=== PATIENT | female | born 1990 | race Hispanic/Latino ===

== ENCOUNTER 2024-01-17 10:31 | Observation (INO) | payer MEDICAID, OTHER ==
[2024-01-17 11:06] VITALS: BMI 37.5
[2024-01-17] MEDS: Acetaminophen 500 MG TAB PO SCH (12:25)
[2024-01-17 12:35] LABS: #Basophils 0.02 10x3/uL (0.0-0.2); #Eosinophils 0.05 10x3/uL (0.0-0.5); #Monocytes 0.71 10x3/uL (0.0-1.1); #Neutrophils 8.19 10x3/uL (1.5-8.4); %Basophils 0.2 % (0.0-2.0); %Eosinophils 0.4 % (0.0-6.0); %Lymphocytes 18.7 % (18.0-47.0); %Monocytes 6.4 % (0.0-10.0); %Neutrophils 73.7 % (40.0-75.0); Hematocrit 35.8 % (34.9-44.5); Mean Corpuscular HGB CONC 30.7 g/dL (32.0-36.0); Mean Corpuscular Volume 68.2 fL (81.6-98.3); Mean Platelet Volume 10.5 fL (7.4-10.4); Platelet Count 228 10x3/uL (150-450); RBC Distribution Width 20.8 % (11.5-14.5); Red Blood Cell (RBC) Count 5.25 10x6/uL (3.90-5.03); White Blood Cell (WBC) Count 11.1 10x3/uL (3.5-10.5)
[2024-01-17 12:50] LABS: INR-International Normal Ratio 0.9; PTT 26.1 sec (22.0-33.0); Prothrombin Time 10.3 sec (9.5-12.1)
[2024-01-17 12:55] LABS: ALT (SGPT) 14 U/L (8-55); AST (SGOT) 17 U/L (5-34); Albumin 2.8 g/dL (3.5-5.0); Alkaline Phosphatase 141 U/L (40-110); Anion Gap 15 mmol/L (10-20); BUN (Urea Nitrogen) 8 mg/dL (7.0-18.7); Bilirubin, Total 0.3 mg/dL (0.2-1.2); Calc. Creatinine Clearance 208 mL/min (70-130); Carbon Dioxide 17 mmol/L (22-29); Chloride 106 mmol/L (98-107); Estimated GFR 123; Glucose 79 mg/dL (70-105); Potassium 3.9 mmol/L (3.5-5.1); Protein, Total 6.8 g/dL (6.0-8.3); Sodium 134 mmol/L (136-145)
[2024-01-17 14:05] LABS: Anisocytosis MODERATE=16-30 cells (100X) (0-5/hpf); Hypochromia SLIGHT = 6-15 cells (100X) (0-5/hpf); Microcytosis MODERATE=15-30 cells (100X) (0-5/hpf); Platelet Adequacy Comment Appears Adequate; Polychromasia SLIGHT = 2-3 cells (100X) (0-2/hpf)
[2024-01-17] MEDS ORDERED: Ondansetron PF 4 MG/2 ML Vial IVP PRN (17:16)
[2024-01-17] MEDS ORDERED: Promethazine HCl 25 MG/ML VIAL IM PRN (17:16)
[2024-01-17] MEDS ORDERED: hydrALAZINE 20 MG/ML VIAL SLOW IVP PRN (17:16)
[2024-01-17] MEDS: Morphine 4 MG/ML VIAL SLOW IVP SCH (17:20)
[2024-01-17] MEDS ORDERED: Dextrose 5% in Water 1,000 ML IV PRN (17:45)
[2024-01-17] MEDS ORDERED: Glucagon 1 MG/ML KIT IM PRN (17:45)
[2024-01-17] MEDS ORDERED: Dextrose 50% Abboject 50 ML SYRINGE SLOW IVP PRN (17:45)
[2024-01-17] MEDS: Lactated Ringer's 500 ML IV SCH (18:59)
[2024-01-17] MEDS: Insulin Lispro 100 UNIT/ML 10 ML VIAL SC SCH (21:29)
[2024-01-18] MEDS ORDERED: Acetaminophen 500 MG TAB PO SCH (08:00)
[2024-01-18] MEDS: Lantus 1000 UNITS/10 ML VIAL SC SCH (08:34)
[2024-01-18] MEDS: metFORMIN 500 MG TAB PO SCH (08:34)
[2024-01-18] MEDS: Insulin Lispro 100 UNIT/ML 10 ML VIAL SC SCH (08:53)
== END 2024-01-18 13:33 | disposition home health service (06) ==
LOC: CSHLD/OP 10:31 → CSHLD 18:29
PROVIDERS: ADMIT Emergency Medicine; ATTEND Emergency Medicine
DX: O9A.213 Injury, poisoning and certain other consequences of external causes complicating pregnancy, third trimester (principal); O47.03 False labor before 37 completed weeks of gestation, third trimester; O24.113 Pre-existing type 2 diabetes mellitus, in pregnancy, third trimester; O40.3XX0 Polyhydramnios, third trimester, not applicable or unspecified; O34.211 Maternal care for low transverse scar from previous cesarean delivery; O99.13 Other diseases of the blood and blood-forming organs and certain disorders involving the immune mechanism complicating the puerperium; O35.2XX0 Maternal care for (suspected) hereditary disease in fetus, not applicable or unspecified; Z3A.35 35 weeks gestation of pregnancy; Z87.59 Personal history of other complications of pregnancy, childbirth and the puerperium; Z79.4 Long term (current) use of insulin; V49.40XA Driver injured in collision with unspecified motor vehicles in traffic accident, initial encounter
CPT/HCPCS: 36416; 76819; 80053; 85025; 85610; 85730; 86850; 86900; 86901; 99285; J1815; J2272

== ENCOUNTER 2024-01-20 10:30 | Day surgery (SDC) | payer MEDICAID, OTHER ==
[2024-01-20 10:54] VITALS: BMI 37.0
== END 2024-01-20 13:20 | disposition home or self-care (01) ==
LOC: CSHLD/OP 10:30
PROVIDERS: ATTEND Emergency Medicine
DX: O36.8130 Decreased fetal movements, third trimester, not applicable or unspecified (principal); O34.211 Maternal care for low transverse scar from previous cesarean delivery; O99.013 Anemia complicating pregnancy, third trimester; O35.2XX0 Maternal care for (suspected) hereditary disease in fetus, not applicable or unspecified; D56.3 Thalassemia minor; O24.113 Pre-existing type 2 diabetes mellitus, in pregnancy, third trimester; O40.3XX0 Polyhydramnios, third trimester, not applicable or unspecified; O26.893 Other specified pregnancy related conditions, third trimester; Z88.0 Allergy status to penicillin; Z79.4 Long term (current) use of insulin; Z79.899 Other long term (current) drug therapy; Z3A.36 36 weeks gestation of pregnancy
CPT/HCPCS: 76819; 99283

== ENCOUNTER 2024-01-27 10:18 | Inpatient (IN) | payer MEDICAID, OTHER ==
[2024-01-27] MEDS ORDERED: hydrALAZINE 20 MG/ML VIAL SLOW IVP PRN (10:56)
[2024-01-27] MEDS ORDERED: Ondansetron PF 4 MG/2 ML Vial IVP PRN (10:56)
[2024-01-27] MEDS ORDERED: Promethazine HCl 25 MG/ML VIAL IM PRN (10:56)
[2024-01-27] MEDS ORDERED: Tranexamic Acid 1,000 MG/10 ML VIAL IVP PRN (10:57)
[2024-01-27] MEDS ORDERED: Misoprostol 200 MCG TAB PR PRN (10:57)
[2024-01-27] MEDS ORDERED: Diphenoxylate HCl/Atropine Tablet PO PRN (10:57)
[2024-01-27] MEDS ORDERED: Methylergonovine 0.2 MG/ML VIAL IM PRN (10:57)
[2024-01-27] MEDS ORDERED: Carboprost 250 MCG/ML AMP IM PRN (10:57)
[2024-01-27] MEDS ORDERED: Oxytocin 30 units/NS 500 ML 500 ML IV SCH (11:00)
[2024-01-27] MEDS ORDERED: Glucagon 1 MG/ML KIT IM PRN (11:11)
[2024-01-27] MEDS ORDERED: Dextrose 5% in Water 1,000 ML IV PRN (11:11)
[2024-01-27] MEDS ORDERED: Dextrose 50% Abboject 50 ML SYRINGE SLOW IVP PRN (11:11)
[2024-01-27 11:45] LABS: Hematocrit 33.7 % (34.9-44.5); Hemoglobin 10.2 g/dL (12.0-15.5); Mean Corpuscular HGB CONC 30.3 g/dL (32.0-36.0); Mean Corpuscular Volume 69.5 fL (81.6-98.3); Mean Platelet Volume 10.3 fL (7.4-10.4); Platelet Count 237 10x3/uL (150-450); RBC Distribution Width 21.4 % (11.5-14.5); Red Blood Cell (RBC) Count 4.85 10x6/uL (3.90-5.03); White Blood Cell (WBC) Count 8.2 10x3/uL (3.5-10.5)
[2024-01-27 12:19] LABS: Syphilis Antibody Nonreactive (Nonreactive); Syphilis Antibody Index 0.06 S/CO (<1.00 Non-Reactive)
[2024-01-27 12:20] LABS: HBsAg Index 0.17 S/CO (0-0.99); Hep B Surf Ag Non-Reactive S/CO (NonReactive)
[2024-01-27 12:37] VITALS: BMI 39.9
[2024-01-27] MEDS: Insulin Lispro 100 UNIT/ML 10 ML VIAL SC PRN (14:37)
[2024-01-27] MEDS: Insulin Lispro 100 UNIT/ML 10 ML VIAL SQ SCH (17:04)
[2024-01-28] MEDS: Insulin Lispro 100 UNIT/ML 10 ML VIAL SQ SCH (08:33)
[2024-01-28] MEDS: Lantus 1000 UNITS/10 ML VIAL SC SCH (09:00)
[2024-01-28] MEDS ORDERED: metFORMIN 500 MG TAB PO SCH ×2 (09:00)
[2024-01-28] MEDS: Prenatal Vitamin 1 TAB PO SCH (09:01)
[2024-01-28] MEDS ORDERED: Naloxone HCl 0.4 mg/ml Vial IVP PRN ×2 (13:39)
[2024-01-28] MEDS ORDERED: Promethazine HCl 25 MG/ML VIAL IM PRN (13:39)
[2024-01-28] MEDS ORDERED: Moisturizing Cream (Eucerin) 113 GM JAR TOP PRN (13:39)
[2024-01-28] MEDS ORDERED: Naloxone HCl 0.4 mg/ml Vial IV PRN (13:39)
[2024-01-28] MEDS ORDERED: Ondansetron PF 4 MG/2 ML Vial IVP PRN ×2 (13:39)
[2024-01-28] MEDS ORDERED: Meperidine HCl/PF 25 MG (1 mL) VIAL SLOW IVP PRN (13:39)
[2024-01-28] MEDS ORDERED: diphenhydrAMINE 50 MG/ML VIAL IVP PRN (13:39)
[2024-01-28] MEDS ORDERED: fentaNYL 50 mcg/mL 1 mL Vial SLOW IVP PRN (13:39)
[2024-01-28] MEDS ORDERED: Communication Order-Pharmacy FS SCH (13:45)
[2024-01-28] MEDS ORDERED: Insulin Lispro 100 UNIT/ML 10 ML VIAL SC PRN ×2 (17:31)
[2024-01-28] MEDS ORDERED: hydrALAZINE 20 MG/ML VIAL SLOW IVP PRN (17:31)
[2024-01-28] MEDS ORDERED: Dextrose 50% Abboject 50 ML SYRINGE SLOW IVP PRN (17:31)
[2024-01-28] MEDS ORDERED: Bisacodyl 10 MG SUPP PR PRN (17:31)
[2024-01-28] MEDS ORDERED: Glucagon 1 MG/ML KIT IM PRN (17:31)
[2024-01-28] MEDS ORDERED: Dextrose 5% in Water 1,000 ML IV PRN (17:31)
[2024-01-28] MEDS: CEFAZOLIN 2 GM VIAL ONE (17:36)
[2024-01-28] MEDS: Phenylephrine 40 MG/NS 250 ML 250 ML ONE (17:37)
[2024-01-28] MEDS: Dexamethasone 10 MG/ML VIAL ONE (17:37)
[2024-01-28] MEDS: Dexmedetomidine 200 MCG/2 ML VIAL ONE (17:37)
[2024-01-28] MEDS: Ketorolac Tromethamine 30 MG (1 mL) VIAL ONE (17:37)
[2024-01-28] MEDS: Morphine PF 10 MG/10 ML VIAL ONE (17:37)
[2024-01-28] MEDS: Sodium Chloride 0.9% 10 ML ONE (17:38)
[2024-01-28] MEDS: Tranexamic Acid 1,000 MG/10 ML VIAL ONE (17:38)
[2024-01-28] MEDS: Ondansetron PF 4 MG/2 ML Vial ONE (17:38)
[2024-01-28] MEDS: Midazolam HCl 2 mg/2 ml Vial ONE (17:38)
[2024-01-28] MEDS: Oxytocin 10 UNITS/ML VIAL ONE (17:38)
[2024-01-28] MEDS: Ketorolac Tromethamine 30 MG (1 mL) VIAL IVP SCH (18:04)
[2024-01-28] MEDS: Acetaminophen 500 MG TAB PO SCH (21:15)
[2024-01-28] MEDS: Docusate 100 MG CAP PO SCH (21:15)
[2024-01-29 04:39] LABS: Hematocrit 26.7 % (34.9-44.5); Hemoglobin 8.3 g/dL (12.0-15.5); Mean Corpuscular HGB CONC 31.1 g/dL (32.0-36.0); Mean Corpuscular Hemoglobin 21.4 pg (27.0-33.0); Mean Corpuscular Volume 68.8 fL (81.6-98.3); Mean Platelet Volume 9.5 fL (7.4-10.4); Platelet Count 194 10x3/uL (150-450); RBC Distribution Width 21.1 % (11.5-14.5); Red Blood Cell (RBC) Count 3.88 10x6/uL (3.90-5.03); White Blood Cell (WBC) Count 10.9 10x3/uL (3.5-10.5)
[2024-01-29] MEDS: Ferrous Sulfate 300 MG (5 mL) UDCUP PO SCH (08:29)
[2024-01-29] MEDS: metFORMIN 500 MG TAB PO SCH (08:29)
[2024-01-29] MEDS: Enoxaparin 40 MG (0.4 mL) SYRINGE SC SCH (08:32)
[2024-01-29] MEDS: HYDROcodone/Acetaminophen 5/325 mg Tablet PO PRN (08:52)
[2024-01-29] MEDS ORDERED: Lantus 1000 UNITS/10 ML VIAL SC SCH (09:00)
[2024-01-29] MEDS: Acetaminophen 325 MG TAB PO PRN (16:52)
[2024-01-29] MEDS: Simethicone Chewable 80 MG TAB PO PRN (19:47)
[2024-01-29] MEDS: Ibuprofen 800 MG TAB PO SCH (21:28)
[2024-01-30 04:02] LABS: Hematocrit 26.6 % (34.9-44.5); Hemoglobin 8.1 g/dL (12.0-15.5); Mean Corpuscular HGB CONC 30.5 g/dL (32.0-36.0); Mean Corpuscular Hemoglobin 21.1 pg (27.0-33.0); Mean Corpuscular Volume 69.3 fL (81.6-98.3); Mean Platelet Volume 10.1 fL (7.4-10.4); Platelet Count 213 10x3/uL (150-450); RBC Distribution Width 21.3 % (11.5-14.5); Red Blood Cell (RBC) Count 3.84 10x6/uL (3.90-5.03); White Blood Cell (WBC) Count 9.1 10x3/uL (3.5-10.5)
[2024-01-30] MEDS: Ibuprofen 600 MG TAB PO SCH (13:08)
[2024-01-30] MEDS: Polyethylene Glycol 3350 17 GM Packet PO SCH ×2 (13:10→21:06)
[2024-01-30] MEDS: HYDROcodone/Acetaminophen 5/325 mg Tablet PO PRN ×2 (15:54→21:10)
[2024-01-31] MEDS ORDERED: Polyethylene Glycol 3350 17 GM Packet PO SCH (09:00)
[2024-01-31] MEDS: Acetaminophen 500 MG TAB PO SCH ×2 (11:49→23:22)
[2024-01-31] MEDS: diphenhydrAMINE 50 MG/ML VIAL IVP SCH ×2 (11:50→23:17)
[2024-01-31] MEDS: Metoclopramide HCl 10 MG (2 mL) VIAL IVP SCH ×2 (11:51→23:20)
[2024-02-01 07:42] VITALS: BP 126/83; TEMP 98.3
[2024-02-01] MEDS: Cyclobenzaprine 10 MG TAB PO SCH (10:45)
== END 2024-02-01 13:30 | disposition home or self-care (01) | DRG 783 ==
LOC: CSHANTE 10:18 → CSHLD 01-28 12:20 → CSHPP 01-28 16:55
PROVIDERS: ADMIT Family Medicine; ATTEND Obstetrics & Gynecology
PROC: 10D00Z1 Extraction of Products of Conception, Low, Open Approach (ICD-10-PCS; principal; 2024-01-28)
PROC: 0UT70ZZ Resection of Bilateral Fallopian Tubes, Open Approach (ICD-10-PCS; 2024-01-28)
PROC: 0UB00ZZ Excision of Right Ovary, Open Approach (ICD-10-PCS; 2024-01-28)
PROC: 3E033XZ Introduction of Vasopressor into Peripheral Vein, Percutaneous Approach (ICD-10-PCS; 2024-01-28)
DX: O36.63X0 Maternal care for excessive fetal growth, third trimester, not applicable or unspecified (principal); O24.12 Pre-existing type 2 diabetes mellitus, in childbirth; O99.113 Other diseases of the blood and blood-forming organs and certain disorders involving the immune mechanism complicating pregnancy, third trimester; D56.0 Alpha thalassemia; D50.9 Iron deficiency anemia, unspecified; O99.02 Anemia complicating childbirth; O40.3XX0 Polyhydramnios, third trimester, not applicable or unspecified; O28.5 Abnormal chromosomal and genetic finding on antenatal screening of mother; O99.214 Obesity complicating childbirth; E66.812 Obesity, class 2; O34.83 Maternal care for other abnormalities of pelvic organs, third trimester; D27.0 Benign neoplasm of right ovary; O34.211 Maternal care for low transverse scar from previous cesarean delivery; N83.8 Other noninflammatory disorders of ovary, fallopian tube and broad ligament; Z3A.37 37 weeks gestation of pregnancy; Z88.0 Allergy status to penicillin; Z79.899 Other long term (current) drug therapy; Z79.84 Long term (current) use of oral hypoglycemic drugs; Z79.4 Long term (current) use of insulin; Z37.0 Single live birth; Z23 Encounter for immunization; Z30.2 Encounter for sterilization
CPT/HCPCS: 36415; 36416; 51702; 85027; 86780; 86850; 86900; 86901; 87340; 88302; 88307; J1100; J1200; J1650; J1815; J1885; J2250; J2274; J2405; J2590; J2765